=== PATIENT | male | born 1975 | race African-American/Black ===

== ENCOUNTER → 2017-12-01 | Emergency (ER) | payer BC ==
[~2017-12-01] VITALS: Ht 170.2 cm; Wt 83.5 kg
[~2017-12-01] MED LIST: NAPROSYN500 MG PO; TRAMADOL HCL50 MG PO
[2017-12-01 19:13] LABS: HEMATOCRIT 43.4 % (38.0-50.0); HEMOGLOBIN 14.5 G/DL (12.5-16.6); MCH 31.7 PG (29.0-34.0); MCHC 33.4 G/DL (30.0-36.0); MCV 94.8 FL (86-99); PLATELET COUNT 226 K/uL (156-360); RBC DIS.WIDTH-CV 13.3 % (11.8-14.6); RBC DIS.WIDTH-SD 46.3 % (39-53); RED BLOOD COUNT 4.58 M/uL (4.00-5.50); WHITE BLOOD COUNT 4.1 K/uL (4.1-10.2)
[2017-12-01 19:22] LABS: ALBUMIN 4.4 g/dL (3.2-4.8); CHLORIDE 104 mEq/L (99-109); POTASSIUM 4.3 mEq/L (3.7-5.4); SODIUM 142 mEq/L (136-147)
[2017-12-01 19:24] LABS: GLUCOSE 81 mg/dL (70-99); TOTAL PROTEIN 7.5 g/dL (6.4-8.3)
[2017-12-01 19:26] LABS: TOTAL BILIRUBIN 0.5 mg/dL (0.0-1.0)
[2017-12-01 19:28] LABS: ALKALINE PHOSPHATASE 64 IU/L (3-129); CREATININE 1.1 mg/dL (0.6-1.3)
[2017-12-01 19:29] LABS: UREA NITROGEN (BUN) 14 mg/dL (9-23)
[2017-12-01 19:30] LABS: AST (GOT) 17 IU/L (2-34)
[2017-12-01 19:31] LABS: ALT (GPT) 15 IU/L (3-49)
[2017-12-01 19:32] LABS: GFR ESTIMATE (CALCULATED) > 59 mL/min/ (58.99-99999)
[2017-12-01 20:39] LABS: APPEARANCE CLEAR ((CLEAR)); BILIRUBIN NEGATIVE; BLOOD NEGATIVE; COLOR YELLOW ((YELLOW)); GLUCOSE (STRIP) NEGATIVE; KETONES NEGATIVE; LEUKOCYTES NEGATIVE; NITRITE NEGATIVE; PROTEIN (STRIP) NEGATIVE; SPECIFIC GRAVITY 1.023 (1.000-1.030); UCUL ADDED? NO; UROBILINOGEN 0.2 MG/DL (0.2-1.0)
[2017-12-01 23:35] VITALS: BP 100/75
== END | disposition home or self-care (01) ==
LOC: EME 17:47
DX: N50.812 Left testicular pain (principal)
CPT/HCPCS: 76870; 80053; 81003; 85027; 99281; 99284